=== PATIENT | female | born 1965 | race Caucasian/White ===

== ENCOUNTER 2017-09-18 16:21 | Emergency (ER) | payer OTHER ==
[~2017-09-18] VITALS: Ht 154.9 cm; Wt 61.0 kg
[2017-09-18] MEDS ORDERED: ONDANSETRON 2MG/ML, 2ML IVPush ONE (17:00)
[2017-09-18] MEDS ORDERED: SODIUM CHLORIDE 0.9% 1,000ML IVBOLUS ONE (17:00)
[2017-09-18] MEDS ORDERED: MORPHINE SULFATE 4 MG/ML, 1ML IVPush PRN (17:00)
[2017-09-18] MEDS ORDERED: FAMOTIDINE 20 MG/2 ML IVP ONE (17:00)
[2017-09-18] MEDS ORDERED: SODIUM CHLORIDE FLUSH 10ML SYR IVF ONE (17:00)
[2017-09-18 17:37] LABS: HEMATOCRIT 44.3 % (34.6-47.8); HEMOGLOBIN 15.2 g/dL (11.7-16.4); WHITE BLOOD COUNT 4.9 x10^3/uL (3.4-10)
[2017-09-18] MEDS ORDERED: FAMOTIDINE 20 MG/2 ML ONE (17:44)
[2017-09-18 17:50] LABS: BLOOD UREA NITROGEN 9 mg/dL (7-18)
[2017-09-18 17:53] LABS: ASPARTATE AMINO TRANSFERASE 13 U/L (15-37)
[2017-09-18] MEDS ORDERED: OMNIPAQUE 350 MG/ML, 100ML BOTTLE ONE (18:21)
[2017-09-18 19:32] VITALS: BP 114/72
== END 2017-09-18 19:34 | disposition home or self-care (01) ==
LOC: ED 19:28
DX: A09 Infectious gastroenteritis and colitis, unspecified (principal)
CPT/HCPCS: 36415; 74177; 80053; 81003; 83690; 85025; 96374; 99285; J7030; Q9967; S0028

== ENCOUNTER 2017-09-29 10:39 | Emergency (ER) | payer OTHER ==
[~2017-09-29] VITALS: Ht 154.9 cm; Wt 61.3 kg
[2017-09-29] MEDS ORDERED: DIPHENHYDRAMINE 50 MG/ML, 1ML IVPush ONE (11:30)
[2017-09-29] MEDS ORDERED: FAMOTIDINE 20 MG TABLET PO ONE (11:30)
[2017-09-29] MEDS ORDERED: FAMOTIDINE 20 MG TABLET ONE (12:33)
[2017-09-29 13:36] VITALS: BP 117/67
== END 2017-09-29 14:03 | disposition home or self-care (01) ==
LOC: ED 12:51
DX: L50.0 Allergic urticaria (principal)
CPT/HCPCS: 99283; J7512